=== PATIENT | female | born 2000 | race Caucasian/White ===

== ENCOUNTER 2018-08-27 17:27 | Emergency (ER) | payer OTHER ==
[~2018-08-27] VITALS: Ht 167.6 cm; Wt 70.3 kg
[2018-08-27] MEDS ORDERED: ULTRAM50 MG PO (17:50)
[2018-08-27] MEDS ORDERED: NAPROSYN500 MG PO (17:51)
[2018-08-27] MEDS ORDERED: ZOFRAN4 MG PO (20:02)
== END 2018-08-27 20:15 | disposition home or self-care (01) ==
LOC: ED 17:27
DX: I88.0 Nonspecific mesenteric lymphadenitis (principal); Z87.891 Personal history of nicotine dependence
CPT/HCPCS: 74177; 80053; 81001; 83690; 84703; 85025; 99284-25; J1885; J2405